=== PATIENT | male | born 1960 | race Two or more races ===

== ENCOUNTER 2022-12-10 09:30 | Inpatient (IN) | payer OTHER ==
[~2022-12-10] VITALS: Ht 165.1 cm; Wt 76.2 kg
[2022-12-17] MEDS ORDERED: LOSARTAN-HCTZ1 EACH PO (11:32)
[2022-12-19 08:08] LABS: ALBUMIN 2.4 gm/dL (3.4-5.0); CALCIUM 7.9 mg/dL (8.5-10.1); CREATININE SERUM 0.86 mg/dL (0.70-1.30); GFR 90.11; MAGNESIUM 1.8 mg/dL (1.8-2.4); PHOSPHOROUS 2.5 mg/dL (2.5-4.9); POTASSIUM 3.36 mEq/L (3.5-5.1)
[2022-12-19 08:58] LABS: HEMATOCRIT 34.7 % (39.0-48.0); HEMOGLOBIN 11.8 g/dL (13-16.00); MEAN CORPUSCULAR HEMOGLOBIN 31.3 pg (27.00-32.0); PLATELET COUNT 182 K/uL (150-450); RED BLOOD COUNT 3.78 M/uL (4.00-6.00); RED CELL DISTRIBUTION WIDTH 14.8 % (11.5-14.5)
[2022-12-21 07:45] LABS: HEMATOCRIT 32.7 % (39.0-48.0); MEAN CELL VOLUME 93.3 fL (80.0-100.00); MEAN CORPUSCULAR HEMOGLOBIN 31.5 pg (27.00-32.0); MEAN CORPUSCULAR HGB CONC 33.7 g/dl (32.0-36.0); PLATELET COUNT 187 K/uL (150-450); RED CELL DISTRIBUTION WIDTH 13.7 % (11.5-14.5)
[2022-12-21 08:10] LABS: CALCIUM 8.2 mg/dL (8.5-10.1); CREATININE SERUM 0.68 mg/dL (0.70-1.30); GFR 118.16; POTASSIUM 4.03 mEq/L (3.5-5.1)
[2022-12-21] MEDS ORDERED: TRAM1TAB98 PO (13:16)
== END 2022-12-21 15:59 | disposition home or self-care (01) | DRG 331 ==
LOC: EDUNIT# 09:30 → SURH 12-18 05:40 → O/R 12-18 05:40 → SURH 12-18 09:00
PROVIDERS: Internal Medicine; ADMIT Surgery; ATTEND Surgery
PROC: 0DBP4ZZ Excision of Rectum, Percutaneous Endoscopic Approach (ICD-10-PCS; 2022-12-18)
PROC: 0WQF4ZZ Repair Abdominal Wall, Percutaneous Endoscopic Approach (ICD-10-PCS; 2022-12-18)
PROC: 0DBU4ZZ Excision of Omentum, Percutaneous Endoscopic Approach (ICD-10-PCS; 2022-12-18)
PROC: 0DN84ZZ Release Small Intestine, Percutaneous Endoscopic Approach (ICD-10-PCS; 2022-12-18)
PROC: 0DBM4ZZ Excision of Descending Colon, Percutaneous Endoscopic Approach (ICD-10-PCS; 2022-12-18)
PROC: 0DJD8ZZ Inspection of Lower Intestinal Tract, Via Natural or Artificial Opening Endoscopic (ICD-10-PCS; 2022-12-18)
PROC: 0DTN4ZZ Resection of Sigmoid Colon, Percutaneous Endoscopic Approach (ICD-10-PCS; principal; 2022-12-18 09:00)
DX: K57.20 Diverticulitis of large intestine with perforation and abscess without bleeding (principal); K63.5 Polyp of colon; K43.5 Parastomal hernia without obstruction or gangrene; K66.0 Peritoneal adhesions (postprocedural) (postinfection); Z43.3 Encounter for attention to colostomy; K82.8 Other specified diseases of gallbladder

== ENCOUNTER 2022-12-14 07:08 | Outpatient (CLI) | payer OTHER | END 2022-12-14 07:20 | disposition home or self-care (01) | LOC: EKG 07:08 | PROVIDERS: ATTEND Surgery | DX: Z01.810 Encounter for preprocedural cardiovascular examination (principal); I10 Essential (primary) hypertension; K57.20 Diverticulitis of large intestine with perforation and abscess without bleeding; Z93.3 Colostomy status; R10.9 Unspecified abdominal pain; R19.4 Change in bowel habit; K63.5 Polyp of colon ==

== ENCOUNTER 2023-04-05 05:30 | Day surgery (SDC) | payer OTHER ==
[2023-03-30 11:09] LABS: URINE APPEARANCE Clear; URINE BILIRRUBIN Negative (NEGATIVE); URINE BLOOD Negative; URINE COLOR Yellow; URINE GLUCOSE Negative (NEGATIVE); URINE LEUKOCYTE Negative; URINE NITRATE Negative; URINE PROTEIN Negative (NEGATIVE); URINE UROBILINOGEN 0.2 E.U./dl
[2023-03-30 11:10] LABS: HEMATOCRIT 44.5 % (39.0-48.0); MEAN CELL VOLUME 90.3 fL (80.0-100.00); MEAN CORPUSCULAR HEMOGLOBIN 30.5 pg (27.00-32.0); MEAN CORPUSCULAR HGB CONC 33.8 g/dl (32.0-36.0); PLATELET COUNT 204 K/uL (150-450); RED BLOOD COUNT 4.92 M/uL (4.00-6.00); RED CELL DISTRIBUTION WIDTH 14.2 % (11.5-14.5); URINE RBC 2.7 uL (0.0-20.8)
[2023-03-30 11:12] LABS: URINE BACTERIA 1.2 uL (0.0-1933); URINE EPITHELIAL CELLS 0.4 uL (0.0-38.8)
[2023-03-30 11:46] LABS: ALBUMIN 3.5 gm/dL (3.4-5.0); BILIRUBIN TOTAL 0.65 mg/dL (0.3-1.2); CALCIUM 9.4 mg/dL (8.5-10.1); CREATININE SERUM 0.78 mg/dL (0.70-1.30); GFR 100.85; POTASSIUM 4.1 mEq/L (3.5-5.1); TOTAL PROTEIN 7.5 gm/dL (6.4-8.2)
[2023-03-30 12:16] LABS: INR 0.99; PARTIAL THROMBOPLASTIN TIME 29.9 SECONDS (22.0-34.0); PROTHROMBIN TIME 10.4 SECONDS (9.0-11.5)
[~2023-04-05 05:30] MED LIST: ALBUTEROL; ALLERGY RELIE15.8 ML; LOSARTAN-HCTZ1 EACH PO; SINGULAIR10 MG PO; TRAM1TAB98 PO
[2023-04-05] MEDS ORDERED: CEFAZOLIN SODIUM 1,000 MG VIAL ONE (07:06)
[2023-04-05] MEDS ORDERED: CEFAZOLIN SODIUM 1,000 MG in 0.9 % SODIUM CHLORIDE 50 ML IV ONE (08:15)
== END 2023-04-05 11:00 | disposition home or self-care (01) ==
LOC: CIR.AMB 05:30
PROVIDERS: ATTEND Surgery
DX: D21.6 Benign neoplasm of connective and other soft tissue of trunk, unspecified (principal); D21.11 Benign neoplasm of connective and other soft tissue of right upper limb, including shoulder; Z20.822 Contact with and (suspected) exposure to COVID-19